=== PATIENT | male | born 1990 | race Asian ===

== ENCOUNTER 2020-12-26 16:28 | Outpatient (CLI) | payer BC ==
--- NOTE | 2020-12-26 16:49 | RAD ---
EXAM: CHEST TWO VIEWS 12/26/2020 4:46 PM HISTORY: Left-sided chest wall pain for 2 months with no history of trauma COMPARISON: None. FINDINGS: Lungs: No acute airspace consolidation. Heart: Normal in size and contour. Pulmonary Vessels: Normal. Costophrenic Angles: Clear. Pneumothorax: None. Osseous Structures: Intact. Additional Findings: None. IMPRESSION: No significant acute intrathoracic disease.
--- NOTE | 2020-12-26 16:50 | RAD ---
EXAM: XR Ribs Lt>=2 View STANDARD PROVIDED CLINICAL HISTORY: Left-sided chest wall pain for 2 months. COMPARISON: None FINDINGS: Left lung is clear. No pneumothorax or pleural effusion is evident. No left-sided rib fracture is see n. No lytic or sclerotic osseous lesion is appreciated. IMPRESSION: No acute findings.
== END 2020-12-26 16:29 | disposition home or self-care (01) ==
LOC: BICRAD 16:28
PROVIDERS: ATTEND Family Medicine
DX: R07.89 Other chest pain (principal)
CPT/HCPCS: 71046